=== PATIENT | female | born 1990 | race Caucasian/White ===

== ENCOUNTER 2023-09-19 08:00 | Outpatient (AMB) | payer OTHER, SELFPAY ==
--- NOTE | 2023-09-19 08:05 | MHC.PC.OV ---
Vital Signs 09/19/23 08:07 Height 5 ft 5 in Weight 165 lb 6 oz BMI 27.5 BP 110/78 Blood Pressure Location Rt brachial Position Sitting Pulse 76 Pulse Source Pulse Oximeter Pulse Oximetry (%) 99 Oxygen Delivery Method Room Air Intake Visit Reasons: Est Care Intake Note: Pt is here to est care Is last menstrual period known: Yes Last menstrual period: 09/04/23 Allergies amoxicillin Allergy (Intermediate, Verified 09/19/23 08:19) Shortness of Breath Medication List - Last Reconciled 09/19/23 by ABILIO Aguilera spironolactone 50 mg PO DAILY Tobacco use date assessed: 09/19/23 Dental Screening Dental Screen Date: 09/19/23 Did you have a dental visit in the last 12 months?: Yes Did you have a dental problem in the last 6 months where you did not have access to dental care?: No Was dental information given to patient?: Patient has dentist HPI HPI Comments History of Present Illness Details Patient is a 33-year-old female who I am meeting for the 1st time. She is up-to-date with Pap smear, has OBGYN. Patient is up-to-date with her immunizations. Patient is active member of [employer]. Patient states she has a chief complaint right knee pain x1 month. States she was vigorously working on developed right knee pain. Patient does have history ACL repair in bilateral knees. Patient denies hearing any popping noises when the injury occurred. She denies any tingling or numbness. She has full flexion extension, but states she has some pain when going up stairs. Uses [facility] Medical History (Updated 09/19/23 @ 09:02 by ABILIO Aguilera) Lower back pain Surgical History S/P reconstruction of ACL of right knee using bone-patellar tendon-bone autograft S/P reconstruction of ACL of left knee using bone-patellar tendon-bone autograft Family History Father Diabetes type 2, controlled Paternal Aunt Breast cancer Social History Housing: Condominium Patient Tobacco Use Status: Never used Tobacco e-Cigarette/Vaping Use: Never Used Second Hand Smoke Exposure: No service: Yes Current occupational status: employed Current occupation: [employer] Current occupational exposures/hazards: Yes Cognitive needs: Yes Hearing needs: Yes Vision needs: Yes Female Reproductive History Menstrual Date of last menstrual period: 09/04/23 Questionnaire PHQ-9 Over the last 2 weeks, how often have you been bothered by any of the following problems? 1. Little interest or pleasure in doing things: not at all 2. Feeling down, depressed, or hopeless: not at all 3. Trouble falling or staying asleep, or sleeping too much: not at all 4. Feeling tired or having little energy: not at all 5. Poor appetite or overeating: not at all 6. Feeling bad about yourself - or that you are a failure or have let yourself or your family down: not at all 7. Trouble concentrating on things, such as reading the newspaper or watching television: not at all 8. Moving or speaking so slowly that other people could have noticed. Or the opposite - being so fidgety or restless that you have been moving around a lot more than usual: not at all 9. Thoughts that you would be better off or of hurting yourself in some way: not at all Total score: 0 Depression Screening Interpretation: Negative Depression Screening Done: Yes 05952 - PHQ-9 Billing: Yes Source: Developed by Drs. Hudson Jose, Teri Michael, Kareem Simon and colleagues, with an educational june from [employer]. Thrive Questionnaire Date Thrive assessed: 10/05/23 I am a: Patient What is your living situation today?: I have a steady place to live Within the past 12 months, did the food you bought not last and you didn't have the money to get more?: Never true Within the past 12 months, did you worry whether your food would run out before you got money to buy more?: Never true Do you have trouble paying for medicines?: No Do you have trouble getting transportation to medical appointments?: No Do you have trouble paying your heating and electricity bill?: No Do you have trouble taking care of your child, family member or friend?: No Do you have trouble with day-to-day activities such as bathing, preparing meals, shopping, managing finances, etc.?: No Are you currently unemployed and looking for a job?: No Are you interested in more education?: No THRIVE Score: 0 AUDIT C Alcohol Use Questionnaire (AUDIT-C) 1. How often do you have a drink containing alcohol?: Monthly or less 2. How many drinks containing alcohol do you have on a typical day when you are drinking?: 1 or 2 3. How often do you have six or more drinks on one occasion?: Never Total Score: 1 STACIE-7 AMB Questionnaire STACIE-7 Date STACIE - 7 assessed: 09/19/23 Feeling nervous, anxious, or on edge: 0 = Not at all Not being able to stop or control worryin = Not at all Worrying too much about different things: 0 = Not at all Trouble relaxin = Not at all Being so restless that it is hard to sit still: 0 = Not at all Becoming easily annoyed or irritable: 0 = Not at all Feeling afraid as if something awful might happen: 0 = Not at all Total STACIE-7 score (0-4 normal; 5-9 mild; 10-14 moderate; 15-21 severe): 0 Source: Developed by Drs. Hudson Jose, Teri Michael, Kraeem Simon and colleagues, with an educational june from [employer]. STACIE-7 Assessment Billing STACIE-7 Assessment Tool: STACIE-7 Assessment 18505 Review of Systems Const All systems reviewed & are unremarkable except as noted in HPI and below Musc Reports arthralgias (Right knee), Denies numbness, Reports stiffness (Lower back) and Denies tingling Neuro Denies numbness, Denies tingling and Denies paresthesias Physical exam (Primary Care) Vital Signs: Last Vital Signs Pulse 76 09/19/23 08:07 BP 110/78 09/19/23 08:07 Pulse Ox 99 09/19/23 08:07 Oxygen Delivery Method Room Air 09/19/23 08:07 Care Plan Goal for BP management: Vital signs reviewed stable. BMI result Body Mass Index 27.5 Tobacco/Smoking Status: Tobacco use Status Tobacco use date assessed 09/19/23 09/19/23 08:16 Patient Tobacco Use Status Never used Tobacco 09/19/23 08:16 e-Cigarette/Vaping Use Never Used 09/19/23 08:16 Depression Screening Interpretation: Negative Const General: cooperative and no acute distress Orientation/consciousness: patient oriented x3 Limitations: no limitations HENMT Head: Yes normal to inspection and Yes normocephalic Eyes General: appearance normal, both eyes and all related structures Neck Neck: Yes normal visual inspection Resp Effort & Inspection: normal respiratory effort Auscultation: clear to auscultation bilaterally Cardio Rate: regular rate Rhythm: regular rhythm Heart sounds: S1 normal heart sound present and S2 normal heart sound present General: Yes no CVA tenderness Back/Spine/Pelvis Back: no CVA tenderness Thoracic/Lumbar Spine: thoracic and lumbar spine normal to inspection and thoraco-lumbar ROM normal Neuro General: patient oriented x3 Extrem General: Yes normal to inspection Right lower extremity: normal to inspection, full ROM and knee Details: crepitus; no tenderness Psych Thought content: Normal thought content present Insight: Good insight present (Psych) Judgement: Good judgement present (Psych) Assessment and Plan Assessment & Plan (1) Right knee pain: Comment: Patient had x-ray performed 2 weeks prior, she will send us results. Will refer to physical therapy. Code(s): M25.561 - Pain in right knee Qualifiers: Chronicity: acute Qualified Code(s): M25.561 - Pain in right knee (2) Lower back pain: Comment: Patient has history of sciatica pain and tightness post snowboarding incident. Patient will get diclofenac gel. Has full range of motion no tingling. Patient states this issue was improving Code(s): M54.50 - Low back pain, unspecified Qualifiers: Chronicity: unspecified Back pain laterality: bilateral Sciatica presence: without sciatica Qualified Code(s): M54.50 - Low back pain, unspecified Plan: Patient will draw fasting labs, follow-up physical exam in 4 weeks. Plan Take your medications as prescribed. If you were prescribed antibiotics today, it is important that you take your medication to their entirety, do not skip any doses, do not finish them early. Follow-up with your primary care provider this week. Return to the emergency department with new or worsening symptoms. Such as fevers, chills, chest pain, shortness of breath, nausea, vomiting, dizziness, headache, vision changes, lethargy In case of emergency call 911 Orders: Orders Complete Blood Count Auto Diff Today Z13.0 - Encounter for screening for diseases of the blood and blood-forming organs and certain disorders involving the immune mechanism Lipid Panel Today Z13.220 - Encounter for screening for lipoid disorders Vitamin D 25-OH (D2 and D3) Today Z13.21 - Encounter for screening for nutritional disorder Vitamin B12 Today Z91.89 - Other specified personal risk factors, not elsewhere classified Comprehensive Met. Panel Today Z91.89 - Other specified personal risk factors, not elsewhere classified Vitamin B6 Today Z13.21 - Encounter for screening for nutritional disorder UA CC w/rflx Micro + Cult Today Z13.89 - Encounter for screening for other disorder TSH reflex Free T4 Today Z13.29 - Encounter for screening for other suspected endocrine disorder PT Evaluation and Treatment Today M25.561 - Pain in right knee Medications: New diclofenac sodium 1% (Aleve (diclofenac)) apply to single elbow, wrist or hand; for hand includes palm/fingers/back of hand 2 grams topical QID 100 grams 0RF Coding Level of Care Code New Pt Level 4 (17659) Diagnoses Acute pain of right knee M25.561 Chronicity: acute Bilateral low back pain without sciatica, unspecified chronicity M54.50 Chronicity: unspecified Back pain laterality: bilateral Sciatica presence: without sciatica Additional Codes STACIE-7 Assessment Billing - STACIE-7 Assessment Tool: STACIE-7 Assessment 99764 ([id number]) Time Spent (min) 38
[2023-09-19 08:07] VITALS: BP 110/78; PULSE 76; O2SAT 99; BMI 27.5
== END 2023-09-19 08:40 | disposition home or self-care (01) ==
PROVIDERS: PCP Nurse Practitioner Family; Visit Provider Nurse Practitioner Primary Care
DX: M25.561 Pain in right knee (principal); M54.50 Low back pain, unspecified
CPT/HCPCS: 99204

== ENCOUNTER 2023-09-20 06:36 | Outpatient (REF) | payer OTHER, SELFPAY ==
[2023-09-20 11:26] LABS: Appearance Urine Clear; Color Urine Yellow; Glucose Urine UA Negative (Negative); Leukocyte Esterase Urine Negative (Negative); Nitrite Urine Negative (Negative); PH 5.5 (5.0-9.0); Urine Blood Negative (Negative); Urine Ketones Negative (Negative); Urine Protein Negative (Neg-Trace)
[2023-09-20 11:35] LABS: MANUAL DIFF FLAG NO
[2023-09-20 11:41] LABS: Basophils Absolute Auto 0.1 X10*3/uL (0.0-0.2); Basophils Percent Auto 1.7 % (0-2); Eosinophils Absolute Auto 0.3 X10*3/uL (0.0-0.4); Eosinophils Percent Auto 6.4 % (0-4); Hematocrit 38.1 % (37.0-47.0); Hemoglobin 12.8 g/dl (12.0-16.0); Imm Gran Abs Auto 0.01 X10*3/uL (0.00-0.03); Imm Gran Pct Auto 0.2 % (0.0-0.4); Lymphocytes Absolute Auto 1.5 X10*3/uL (1.2-4.9); Lymphocytes Percent Auto 35.2 % (20-40); Mean Corpuscular HGB Conc 33.6 g/dl (31.0-35.0); Mean Corpuscular Hemoglobin 29.8 pg (27.0-33.0); Mean Corpuscular Volume 88.6 fL (80.0-98.0); Mean Platelet Volume 10.7 fL (9.4-12.3); Monocytes Absolute Auto 0.5 X10*3/uL (0.1-1.2); Monocytes Percent Auto 11.2 % (2-11); Neutrophils Absolute Auto 1.9 x10*3/uL (2.0-8.3); Neutrophils Percent Auto 45.3 % (45-73); Platelet Count 237 X10*3/uL (160-400); Red Cell Distribution Width 14.2 % (11.0-16.0); White Blood Count 4.2 X10*3/uL (4.8-10.8)
[2023-09-20 12:27] LABS: Vitamin B12 746 pg/mL (200-900)
[2023-09-20 12:28] LABS: Alanine Aminotransferase 18 U/L (0-31); Albumin Level 4.3 g/dL (3.5-5.0); Alkaline Phosphatase 51 U/L (39-117); Anion Gap 12 (12-20); Aspartate Amino Transferase 27 U/L (5-31); Bilirubin Total 0.5 mg/dL (0.0-1.0); Blood Urea Nitrogen 16 mg/dL (9-16); Calcium 9.5 mg/dL (8.4-10.2); Carbon Dioxide 27 mmol/L (22-29); Chloride 104 mmol/L (96-108); Cholesterol 193 mg/dL (<200); Estimated Glomerular Filt Rate > 60; Glucose Random 80 mg/dL (60-115); HDL Cholesterol 99 mg/dL (>40); LDL Cholesterol Calculated 87 mg/dL (<100); Potassium 3.9 mmol/L (3.3-5.1); Sodium 139 mmol/L (135-145); Total Protein 7.5 g/dL (6.5-8.0); Triglycerides 39 mg/dL (<150)
[2023-09-20 12:44] LABS: TSH reflex Free T4 1.17 uIU/mL (0.32-4.0)
[2023-09-25 14:53] LABS: Vitamin D 25-OH, D2 <4 ng/mL; Vitamin D 25-OH, D3 23 ng/mL; Vitamin D 25-OH, Total 23 ng/mL (30-100)
[2023-09-28 15:28] LABS: Vitamin B6 26.4 ng/mL (2.1-21.7)
== END 2023-09-20 06:37 | disposition home or self-care (01) ==
LOC: HO.HMGCLDS 06:36
PROVIDERS: PCP Nurse Practitioner Primary Care; Visit Provider Nurse Practitioner Primary Care
DX: Z13.89 Encounter for screening for other disorder (principal); Z13.6 Encounter for screening for cardiovascular disorders; Z13.29 Encounter for screening for other suspected endocrine disorder; Z13.0 Encounter for screening for diseases of the blood and blood-forming organs and certain disorders involving the immune mechanism; Z13.220 Encounter for screening for lipoid disorders; Z13.21 Encounter for screening for nutritional disorder; Z91.89 Other specified personal risk factors, not elsewhere classified
CPT/HCPCS: 36415; 80053; 80061; 81003; 82306; 82607; 84207; 84443; 85025

== ENCOUNTER 2023-11-01 15:00 | Outpatient (RCR) | payer OTHER, SELFPAY ==
--- NOTE | 2023-10-07 16:04 | MHC.PT.EP ---
[facility] [place] [facility] [place] [facility] [address] Anselmo Prieto [address] [phone] F: [phone] F: [phone] F: [phone] F: [phone] Physical Therapy Plan of Care Date of Evaluation: 10/07/23 Date of Surgery: N/A Diagnosis: pain in right knee (RL) Assessment: pt is a 33 y/o female presenting to physical therapy w/ referring diagnosis of pain in right knee. I am suspicious of a R knee sprain; however, tear can not be completely ruled out. Impairments include pain, decreased range of motion, decreased strength, impaired functional mobility, impaired postural awareness, and altered ambulation mechanics. pt is a good candidate for skilled PT due to age, potential remediation of impairments, typical disease/condition progression and prognosis, comorbidities, and motivation. pt would benefit from skilled PT intervention to provide a tailored strengthening and stretching exercise program, functional training, gait training, postural re-training, neuromuscular re-education, modalities as needed for pain, equipment safety demonstration. Frequency and Duration: The patient will be seen 2x/wk for 4 wks Short Term Goals: pt will be I w/ HEP to promote self-management of condition. pt will improve R knee extension to 0* to remediate gait impairments on even ground. Assisted Goals: pt will report a statistically significant improvement in self-reported outcome measure, LEFI, to promote return to PLOF. pt will <3/10 R knee pain w/ ascending/descending 36 stairs to promote full return to work-related tasks. Treatment Plan: Modalities to reduce pain, spasms and effusion. Manual therapy to restore motion and function. Therapeutic exercise to improve strength and flexibility. Neuromuscular re-education for posture and balance. Therapeutic activities to return to functional activities of daily living. Electronically signed by: Yessica Muniz PT, DPT Please sign and return to therapist. Thank you for your referral.
--- NOTE | 2023-11-04 10:43 | MHC.PT.DC ---
[facility] [place] [facility] [place] Office [place] Office [address] Anselmo Prieto [address] [phone] F: [phone] F: [phone] F: [phone] F: [phone] Physical Therapy Discharge Report Diagnosis: pain in right knee (RL) Date of Surgery: N/A Date of Evaluation: 10/07/23 Date of Discharge: 11/04/23 Treatments to Date: 8 Cancellations to Date: 1 No Shows to Date: 0 Discharge Status: Improved Function Independent with HEP Discharge Summary: Per last treatment note on 11/01/23: Pt with some increased sensation of tissue tension in HS today and mild stiffness throughout. Initiated dynamic stretches after use of upright bike w/o adverse effect. Pt continues to be challenged with HS isometrics d/t weakness. Encouraged to continue HEP and maintain mechanics throughout exercises to optimize fdc results. Agreeable to d/c today. D/C I with HEP. I am suspicious of hamstring tendinopathy given the chronicity of this issue. She was given a home exercise program on self-tissue release, dynamic and static stretching, and isometrics and eccentrics. She is in the service and will no longer be in the area as of 11/03/23. She is discharged from this PT POC. Electronically signed by: Yessica Muniz PT, DPT Please sign and return to therapist. Thank you for your referral.
== END 2023-11-04 10:43 | disposition home or self-care (01) ==
LOC: HO.PT 15:00
PROVIDERS: PCP Nurse Practitioner Primary Care; Visit Provider Nurse Practitioner Primary Care
DX: M25.561 Pain in right knee (principal)
CPT/HCPCS: 97035; 97110; 97140; 97161; 97530